=== PATIENT | male | born 1960 | race Caucasian/White ===

== ENCOUNTER → 2024-08-07 | Outpatient (CLI) | payer BC, SELFPAY ==
--- NOTE | 2024-08-07 10:00 | XR_ITS ---
Examination: CT chest with intravenous contrast 2-D sagittal and coronal reconstructions Exam date and time: August 07, 2024 1059 hours INDICATIONS: Right-sided chest pain beginning 2 months ago CTDI:vol (mGy) 15 DLP: (mGycm) 562 Technique: Multiple axial sections of the thorax have been obtained. Sections have been obtained, 3 mm slice thickness. Mediastinal and lung density settings have been obtained. Intravenous contrast administered, 60 cc Isovue-370. 2-D sagittal, coronal images obtained. Low dose protocols were performed. One or more of the following dose reduction techniques were used; automated exposure control, adjustment of the mA and/or KV according to patient size, use of iterative reconstruction technique. 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
== END | disposition home or self-care (01) ==
PROVIDERS: Referring Provider Family Medicine; Visit Provider Family Medicine
DX: R91.8 Other nonspecific abnormal finding of lung field (principal)
CPT/HCPCS: 71260; A4649; Q9967

== ENCOUNTER → 2024-09-11 | Outpatient (CLI) | payer BC, SELFPAY ==
[2024-09-07 12:58] VITALS: BMI 31.9
[2024-09-10 09:04] LABS: Blood Urea Nitrogen 19 mg/dL (9-23); Creatinine (Component) 1.3 mg/dL (0.6-1.3); Estimated Creatinine Clearance 65.1 mL/min (>60); eGFR > 60 See Note
[2024-09-10 09:10] LABS: Basophils # (Auto) 0.1 Thou/mm3 (0.0-0.2); Basophils % (Auto) 1 % (0-2.5); Eosinophils # (Auto) 0.2 Thou/mm3 (0.0-0.5); Eosinophils % (Auto) 3 % (0-10); Hematocrit 50.4 % (41.0-53.0); Hemoglobin 17.6 g/dL (13.5-16.0); Immature Granulocytes % (Auto) 0 % (0-0); Immature Granulocytes Auto 0.01 Thou/mm3 (0.00-0.00); Lymphocytes # (Auto) 1.3 Thou/mm3 (1.0-4.8); Lymphocytes % (Auto) 19 % (10-50); Mean Corpuscular HGB Conc 34.9 g/dl (31.0-37.0); Mean Corpuscular Hemoglobin 31.5 pg (25.0-35.0); Mean Corpuscular Volume 90 fL (80-100); Monocytes # (Auto) 0.7 Thou/mm3 (0.0-0.8); Monocytes % (Auto) 10 % (0-12); Neutrophils # (Auto) 4.4 Thou/mm3 (1.8-7.7); Neutrophils % (Auto) 67 % (37-80); Nucleated Red Blood Cell % 0 /100 WBC (0); Platelet Count 212 Thou/mm3 (140-440); RDW Standard Deviation 40.1 fL (35.1-43.9); Red Blood Count 5.58 Miln/mm3 (4.50-5.90); White Blood Count 6.6 Thou/mm3 (3.8-10.6)
[2024-09-10 09:15] LABS: Partial Thromboplastin Time 24.9 Seconds (22.0-36.0); Prothrombin Time 11.4 Seconds (9.0-12.2)
[2024-09-11] VITALS (16 sets, daily range): BP systolic 112–159; BP diastolic 79–115; PULSE 82–98; RESP 13–20; TEMP 36.5–37.1; O2SAT 92–100
--- NOTE | 2024-09-11 | XR_ITS ---
Examination: AP chest single view TECHNIQUE: AP upright portable chest single view Exam date and time: September 11, 2024 1027 hours INDICATIONS: Post biopsy right upper lobe pulmonary nodule today. FINDINGS: Again noted pulmonary nodule right upper lobe No pneumothorax post lung biopsy Normal heart size IMPRESSION: No pneumothorax post biopsy right lung pulmonary nodule
[2024-09-11] MEDS: SODIUM CHLORIDE 0.9% 250 ML 250 ML 75 ML IV (09:00)
[2024-09-11] MEDS: fentaNYL CIT INJ 50 mCg/ML AMP 2ML 100 MCG IVP (09:45)
--- NOTE | 2024-09-11 10:08 | XR_ITS ---
Examination: CT guided percutaneous biopsy pulmonary nodule right upper lobe CT thorax without intravenous contrast Moderate intravenous conscious sedation Date and time of procedure: September 11, 2024 0909 hours Indications: CT chest August 07, 2024 Nodules consistent with metastatic disease Informed consent provided. A timeout was completed verifying correct patient, procedure, site and positioning. Technique: Axial 3 mm sections were obtained for localization of a pulmonary nodule right upper lobe Appropriate area is marked. The patient's site was prepped and draped in sterile fashion Maximal sterile barrier technique utilized, including hand hygiene Local anesthesia was obtained with 1% lidocaine. Low dose protocols were performed. One or more of the following dose reduction techniques were used; automated exposure control, adjustment of the mA and/or KV according to patient size, use of iterative reconstruction technique. Utilizing CT fluoroscopic guidance 3 core biopsies obtained of the pulmonary nodule right upper lobe Patient appears in stable condition during this procedure. At completion of the procedure, the patient is in satisfactory condition. Estimated blood loss 0 cc Complete pathology report to follow. Impression: Successful CT-guided percutaneous biopsy right upper lobe pulmonary nodule
--- NOTE | 2024-09-11 11:25 | XR_ITS ---
Examination: AP chest single view TECHNIQUE: AP upright portable chest single view INDICATIONS: Chest film post lung biopsy today pulmonary nodule right upper lobe Exam date and time: September 11, 2024 1130 hours FINDINGS: No pneumothorax post biopsy pulmonary nodule right upper lobe today Minor prominence left ventricle IMPRESSION: No pneumothorax post biopsy of pulmonary nodule right upper lobe today
== END | disposition home or self-care (01) ==
PROVIDERS: Radiology Diagnostic Radiology; PCP Family Medicine; Referring Provider Family Medicine; Visit Provider Family Medicine
DX: R91.1 Solitary pulmonary nodule (principal); Z01.812 Encounter for preprocedural laboratory examination
CPT/HCPCS: 32408; 36415; 77012; 82565; 84520; 85025; 85610; 85730; J3010; J7050

== ENCOUNTER → 2025-02-18 | Outpatient (CLI) | payer BC, SELFPAY ==
--- NOTE | 2025-02-18 16:30 | XR_ITS ---
Examination: CT chest, without intravenous contrast. Sagittal and coronal 2-D reconstructions. Exam date and time: February 18, 2025 1616 hours Comparison August 07, 2024 INDICATIONS: Diagnosis coccidiomycosis, lung nodule history including biopsy September 11, 2024 CTDI:vol (mGy) 16.1 DLP: (mGycm) 721 Technique: Multiple 3.0 mm axial sections of the chest to been obtained. Bone and lung density settings are obtained. Sagittal and coronal 2-D reconstructions have been obtained. Low dose protocols were performed. One or more of the following dose reduction techniques were used; automated exposure control, adjustment of the mA and/or KV according to patient size, use of iterative reconstruction technique. Findings: AP dimension ascending thoracic aorta 4.2 cm No enlargement main pulmonary artery segment No mediastinal lymphadenopathy Stable bilateral pulmonary nodules including 14 mm pulmonary nodule right upper lobe No new pulmonary nodules No interval lobar pneumonia or pulmonary edema Diffuse fatty infiltration throughout the liver Contracted gallbladder No pancreatic mass No hydronephrosis IMPRESSION: Stable bilateral pulmonary nodules, no new pulmonary nodules
== END | disposition home or self-care (01) ==
PROVIDERS: PCP Family Medicine; Referring Provider Family Medicine; Visit Provider Family Medicine
DX: R91.8 Other nonspecific abnormal finding of lung field (principal)
CPT/HCPCS: 71250

== ENCOUNTER → 2025-04-10 | Outpatient (CLI) | payer BC, SELFPAY ==
--- NOTE | 2025-04-10 | XR_ITS ---
Examination: PA lateral chest 2 views TECHNIQUE: Upright PA lateral chest 2 views Date and time: April 10, 2025 0749 hours, comparison September 11, 2024 INDICATIONS: History pulmonary nodule right upper lobe, measuring [address] chest and 32,025 FINDINGS: Pulmonary nodule right upper lobe measures 15 mm on the current study Normal heart size Fat pad at the cardiophrenic angle on the left Prominent osteopenia IMPRESSION: 15 mm pulmonary nodule right upper lobe, which measured [address] chest August 07, 2024, recommend continued follow-up as clinically warranted
== END | disposition home or self-care (01) ==
PROVIDERS: PCP Internal Medicine Infectious Disease; Referring Provider Family Medicine; Visit Provider Family Medicine
DX: R91.1 Solitary pulmonary nodule (principal)
CPT/HCPCS: 71046